=== PATIENT | male | born 1940 | race Caucasian/White ===

== ENCOUNTER 2017-05-22 15:51 | Inpatient (IN) | payer MEDICARE, OTHER ==
[2017-05-22] MEDS ORDERED: Furosemide 40 MG/4 ML VIAL IVPUSH ONE (16:11)
[2017-05-22] MEDS ORDERED: Carvedilol 12.5 MG Tab PO ONE (16:14)
[2017-05-22] MEDS ORDERED: Albuterol/Ipratropium 3.0-0.5 MG/3 ML Neb Soln NEB ONE (16:15)
--- NOTE | 2017-05-22 16:23 | EDM.PDOC ---
ED HPI GENERAL MEDICAL PROBLEM - General Chief Complaint: General Stated Complaint: SHORT OF BREATH Time Seen by Provider: 05/22/17 16:05 Source of Information: Reports: Patient, Old Records (FAX'd from [facility]) History Limitations: Reports: Other (Minimal records available.) - History of Present Illness INITIAL COMMENTS - FREE TEXT/NARRATIVE: 76 yo male 12 cigarette/day smoker with chronic Afib presents with about a 9# weight gain in the last week or so as well as SINCLAIR. When he was seen in the [facility] a couple days ago his low dose metoprolol that he had stopped on his own was replaced by low dose Coreg and he was given low dose furosemide 20 mg qd. He has not noticed an increase in urination since beginning the diuretic. He is on warfarin for the Afib, but apparently did not have an INR done when seen. He denies CP or fever. Has never had an meds for wheezing. He followed up today from his [place] visit with Dr. Gordillo in the clinic in [place] and he in turn referred him to the ER. Here now with his . Is scheduled for an ECHO on 06/02, and is seeing a chief construction inspector on 06/09 in [place]. EF 50% one year ago per ECHO Onset: Gradual Onset Date: 05/13/17 Duration: Day(s):, Getting Worse Location: Reports: Chest, Other (L ankle/foot more swollen than usual.) Severity: Moderate Improves with: Reports: Rest Worsens with: Reports: Movement (SINCLAIR) Context: Reports: Other (Smoker with hx of Afib) Associated Symptoms: Reports: Shortness of Breath (nidhi with exertion. ). 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 ) - Related Data Allergies Allergy/AdvReac Type Severity Reaction Status Date / Time No Known Allergies Allergy Verified 05/22/17 15:59 Home Meds: Home Meds Aspirin 81 mg PO DAILY 05/22/17 [History] Carvedilol [Coreg] 3.125 mg PO BID 05/22/17 [History] Dorzolamide [Trusopt 2% Ophth Soln] 1 drop EYERT BID 05/22/17 [History] Furosemide [Lasix] 20 mg PO DAILY 05/22/17 [History] Glucosamine [Glucosamine Sulfate] 200 mg PO BID 05/22/17 [History] Multivitamin/Iron/Folic Acid [Centrum Adults Tablet] 1 tab PO DAILY 05/22/17 [ History] Warfarin [Coumadin] 5 mg PO DAILY 05/22/17 [History] Past Medical History Cardiovascular History: Reports: Afib, Hypertension Respiratory History: Reports: COPD Social & Family History - Tobacco Use Smoking Status *Q: Current Every Day Smoker Years of Tobacco use: 59 Packs/Tins Daily: 1 - Caffeine Use Caffeine Use: Reports: Coffee - Recreational Drug Use Recreational Drug Use: No ED ROS GENERAL - Review of Systems Review Of Systems: See Below Constitutional: Denies: Fever, Night Sweats, Diaphoresis HEENT: Reports: No Symptoms Respiratory: Reports: Shortness of Breath (primarily with exertion.). Denies: Wheezing, Pleuritic Chest Pain, Cough Cardiovascular: Reports: Dyspnea on Exertion, Orthopnea (Worse the past few days.) Endocrine: Reports: No Symptoms GI/Abdominal: Reports: No Symptoms : Reports: No Symptoms Musculoskeletal: Reports: No Symptoms Skin: Reports: No Symptoms Neurological: Reports: No Symptoms Psychiatric: Reports: No Symptoms ED EXAM, GENERAL - Physical Exam Exam: See Below Exam Limited By: No Limitations General Appearance: Alert, WD/WN, No Apparent Distress Eye Exam: Bilateral Eye: Normal Inspection Ears: Normal External Exam, Normal Canal, Hearing Grossly Normal Ear Exam: Bilateral Ear: Auricle Normal, Canal Normal Nose: Normal Inspection, Normal Mucosa, No Blood Throat/Mouth: Normal Inspection, Normal Lips, Normal Teeth, Normal Oropharynx, Normal Voice, No Airway Compromise Head: Atraumatic Neck: Normal Inspection Respiratory/Chest: No Respiratory Distress, Lungs Clear, Decreased Breath Sounds , Wheezing (faint expiratory) Cardiovascular: Tachycardia, Irregularly Irregular GI/Abdominal: Normal Bowel Sounds, Soft, Non-Tender, No Distention Back Exam: Normal Inspection. No: CVA Tenderness (R), CVA Tenderness (L) Extremities: Pedal Edema (Trace edema to the L lower calf and foot, no calf pain , Yaw's sign not present.) Neurological: Alert, Oriented, CN II-XII Intact, Normal Cognition, No Motor/ Sensory Deficits Psychiatric: Normal Affect, Normal Mood Skin Exam: Warm, Dry, Intact, Normal Color, No Rash Lymphatic: No Adenopathy Course - Vital Signs Text/Narrative:: Discussed with a [place] chief construction inspector @ 1724h Last Recorded V/S: Last Vital Signs Temp 36.4 C 05/22/17 16:01 Pulse 125 H 05/22/17 16:01 Resp 18 05/22/17 16:01 BP 121/97 H 05/22/17 16:45 Pulse Ox 98 05/22/17 16:01 - Orders/Labs/Meds Orders: Active Orders 24 hr Category Date Time Status Cardiac Monitoring [RC] .As Directed Care 05/22/17 15:55 Active EKG Documentation Completion [RC] ASDIRECTED Care 05/22/17 15:56 Active RT Aerosol Therapy [RC] ASDIRECTED Care 05/22/17 16:15 Active Chest 1V Frontal [CR] Stat Exams 05/22/17 16:13 Taken Sodium Chloride 0.9% [Saline Flush] Med 05/22/17 16:11 Active 10 ml FLUSH ASDIRECTED PRN Saline Lock Insert [OM.PC] Routine Oth 05/22/17 16:11 Ordered EKG 12 Lead [EK] Routine Ther 05/22/17 15:55 Ordered Medication Orders Sodium Chloride (Saline Flush) 10 ml FLUSH ASDIRECTED PRN PRN Reason: Keep Vein Open Last Admin: 05/22/17 16:42 Dose: 10 ml Admin: 05/22/17 16:36 Dose: 10 ml Labs: Laboratory Tests 05/22/17 05/22/17 05/22/17 Range/Units 16:30 16:30 16:30 WBC (4.5-12.0) X10-3/uL RBC (4.30-5.75) x10(6)uL Hgb (11.5-15.5) g/dL Hct (30.0-51.3) % MCV (80-96) fL MCH (27.7-33.6) pg MCHC (32.2-35.4) g/dL RDW (11.5-15.5) % Plt Count (125-369) X10(3)uL PT 25.6 H (8.7-11.1) INR 2.48 H (0.89-1.13) D-Dimer, Quantitative 1740 H (100-400) ng/mL Sodium (135-145) mmol/L Potassium (3.5-5.3) mmol/L Chloride (100-110) mmol/L Carbon Dioxide (23-29) mmol/L BUN (8-23) mg/dL Creatinine (0.6-1.3) mg/dL Est Cr Clr Drug Dosing mL/min Estimated GFR (MDRD) (>60) BUN/Creatinine Ratio (9-20) Glucose (80-116) mg/dL Calcium (8.6-10.2) mg/dL Troponin I 0.21 H (0.02-0.06) NG/ML B-Natriuretic Peptide (0-100) pg/mL 05/22/17 05/22/17 05/22/17 Range/Units 16:30 16:30 16:30 WBC 7.5 (4.5-12.0) X10-3/uL RBC 4.93 (4.30-5.75) x10(6)uL Hgb 14.6 (11.5-15.5) g/dL Hct 43.8 (30.0-51.3) % MCV 89.0 (80-96) fL MCH 29.7 (27.7-33.6) pg MCHC 33.3 (32.2-35.4) g/dL RDW 15.0 (11.5-15.5) % Plt Count 195 (125-369) X10(3)uL PT (8.7-11.1) INR (0.89-1.13) D-Dimer, Quantitative (100-400) ng/mL Sodium 133 L (135-145) mmol/L Potassium 3.7 (3.5-5.3) mmol/L Chloride 102 (100-110) mmol/L Carbon Dioxide 21 L (23-29) mmol/L BUN 17 (8-23) mg/dL Creatinine 0.9 (0.6-1.3) mg/dL Est Cr Clr Drug Dosing 76.69 mL/min Estimated GFR (MDRD) > 60 (>60) BUN/Creatinine Ratio 18.9 (9-20) Glucose 104 (80-116) mg/dL Calcium 8.7 (8.6-10.2) mg/dL Troponin I (0.02-0.06) NG/ML B-Natriuretic Peptide 766 H (0-100) pg/mL Meds: Medications Generic Name Dose Route Start Last Admin Trade Name Freq PRN Reason Stop Dose Admin Sodium Chloride 10 ml 05/22/17 16:11 05/22/17 16:42 Saline Flush FLUSH 10 ml ASDIRECTED PRN Administration Keep Vein Open Discontinued Medications Generic Name Dose Route Start Last Admin Trade Name Freq PRN Reason Stop Dose Admin Albuterol/Ipratropium 3 ml 05/22/17 16:15 05/22/17 16:22 Duoneb 3.0-0.5 Mg/3 Ml NEB 05/22/17 16:16 3 ml ONETIME ONE Administration Carvedilol 12.5 mg 05/22/17 16:14 05/22/17 16:45 Coreg PO 05/22/17 16:15 12.5 mg ONETIME ONE Administration Furosemide 40 mg 05/22/17 16:11 05/22/17 16:37 Lasix IVPUSH 05/22/17 16:12 40 mg NOW ONE Administration - Radiology Interpretation Free Text/Narrative:: CXR-interstitial edema consistent with CHF Departure - Departure Time of Disposition: 17:30 Disposition: Admitted As Inpatient 68 Condition: Fair Clinical Impression: Atrial fibrillation with RVR, Elevated troponin Pulmonary edema Qualifiers: Chronicity: acute Qualified Code(s): J81.0 - Acute pulmonary edema - Discharge Information Referrals: Tal Griffiths MD [Primary Care Provider] - Forms: ED Department Discharge - My Orders Last 24 Hours: My Active Orders 05/22/17 15:55 Cardiac Monitoring [RC] .As Directed EKG 12 Lead [EK] Routine 05/22/17 15:56 EKG Documentation Completion [RC] ASDIRECTED 05/22/17 16:11 Sodium Chloride 0.9% [Saline Flush] 10 ml FLUSH ASDIRECTED PRN Saline Lock Insert [OM.PC] Routine 05/22/17 16:13 Chest 1V Frontal [CR] Stat 05/22/17 16:15 RT Aerosol Therapy [RC] ASDIRECTED - Assessment/Plan Last 24 Hours: My Active Orders 05/22/17 15:55 Cardiac Monitoring [RC] .As Directed EKG 12 Lead [EK] Routine 05/22/17 15:56 EKG Documentation Completion [RC] ASDIRECTED 05/22/17 16:11 Sodium Chloride 0.9% [Saline Flush] 10 ml FLUSH ASDIRECTED PRN Saline Lock Insert [OM.PC] Routine 05/22/17 16:13 Chest 1V Frontal [CR] Stat 05/22/17 16:15 RT Aerosol Therapy [RC] ASDIRECTED
[2017-05-22] MEDS: Sodium Chloride 0.9% 10 ML Syringe FLUSH PRN ×2 (16:36→16:42)
[2017-05-22] MEDS ORDERED: Albuterol/Ipratropium 3.0-0.5 MG/3 ML Neb Soln NEB SCH (17:30)
[2017-05-22] MEDS ORDERED: Acetaminophen 325 MG Tab PO PRN (17:30)
[2017-05-22] MEDS ORDERED: Docusate Sodium 100 MG Cap PO PRN (17:30)
[2017-05-22] MEDS ORDERED: Warfarin 5 MG Tab PO SCH (17:45)
[2017-05-22] MEDS ORDERED: Dorzolamide 2% Ophth Soln 10 ML Bottle EYERT SCH (21:00)
[2017-05-22] MEDS: Albuterol/Ipratropium 3.0-0.5 MG/3 ML Neb Soln NEB SCH (21:50)
[2017-05-23] MEDS: Albuterol/Ipratropium 3.0-0.5 MG/3 ML Neb Soln NEB SCH ×2 (03:39→09:46)
[2017-05-23] MEDS ORDERED: Dorzolamide 2% Ophth Soln 10 ML Bottle EYERT SCH (07:25)
[2017-05-23] MEDS ORDERED: Carvedilol 12.5 MG Tab PO SCH (09:00)
[2017-05-23] MEDS ORDERED: Aspirin 81 MG Tab.Chew PO SCH (09:00)
[2017-05-23] MEDS: Furosemide 40 MG/4 ML VIAL IVPUSH SCH ×2 (09:45→10:04)
[2017-05-23] MEDS: Sodium Chloride 0.9% 10 ML Syringe FLUSH PRN (09:47)
[2017-05-23] MEDS ORDERED: Furosemide 40 MG Tab PO SCH (10:15)
--- NOTE | 2017-05-23 12:07 | PN ---
DATE SEEN: 05/23/2017 SUBJECTIVE: Tal Hudson is a 76-year-old, male, admitted with atrial fibrillation related cardiac stress. Diuresed 4 pounds since admission. Have been at 9 pounds in the last week. Laboratory studies, repeat troponin. Feeling much better. OBJECTIVE: VITAL SIGNS: Stable, 36.5 degrees Celsius, pulse 96 and regular, blood pressure 122/82, mean blood pressure 95, respirations 20, 97% on room air. GENERAL: Appears more comfortable. NECK: Benign. Thyroid small. Carotid bruit present on the right, none on the left. Surgical scar well healed. CHEST: Decreased breath sounds in both bases. Increased AP diameter. Prolonged expiratory phase. HEART: Distant heart sounds. Irregularly irregular at 92. ABDOMEN: Benign. EXTREMITIES: No edema. ASSESSMENT: Acute exacerbation of congestive heart failure, cardiac stress, cardiac overload, rate not controlled atrial fibrillation. PLAN: We will recheck a 3rd troponin, up ambulatory, medications on board, appeared to be comfortable, including carvedilol at 12.5 b.i.d. Intervention and care. Close observation. Proceed accordingly. Re-evaluate at noon. /[id number] MARRY/PREM
[2017-05-23 12:23] VITALS: BP 112/64
[2017-05-24] MEDS ORDERED: Furosemide 40 MG Tab PO SCH (09:00)
--- NOTE | 2017-05-25 09:13 | PN ---
DATE SEEN: 05/22/2017 SUBJECTIVE: Tal Hudson is a 76-year-old male from [place], [place], who was admitted to [facility] through the emergency room. He presents with increasing history, probably since mid-summer, but progressively worse over the last 2 weeks with shortness of breath, intolerance to activity, and nocturnal shortness of breath. He had been seen at the [facility] a few days ago, he on his own had stopped his metoprolol, was placed on low dose with increasing doses of carvedilol and low dose 20 mg of furosemide. He is on chronic anticoagulant therapy with warfarin for atrial fibrillation. He is being followed by Dr. Addison, Cardiology, upcoming trip planned and Dr. Tal Griffiths, primary physician. He was found to have a rapid heart rate in the 120s, mild CHF, slightly elevated troponin. Dr. Giles, ER provider of record had spoken with Cardiology in [place], felt this was a stress-related reaction rather than an acute infarct, stable EKG, and admission to the hospital was felt to be appropriate. MEDICATIONS: Present daily medications include, 1. Baby aspirin 81 mg. 2. Carvedilol 12.5 mg b.i.d. 3. Furosemide 20 mg 1 p.o. daily. 4. Trusopt eyedrops 1 drop each eye b.i.d. 5. Glucosamine 500 mg b.i.d. 6. A good multivitamin 1 daily. 7. Warfarin 5, Thursday, Thursday, Thursday; 7.5 other 4 days. ALLERGIES: No medication, environmental, or latex allergies. PAST MEDICAL HISTORY: Significant for multiple surgeries including a left carotid endarterectomy, right inguinal herniorrhaphy, aortic aneurysm stent, and vein surgery along with acute appendectomy. He has had a previous wrist fracture at age 6, site unknown. Chronic illnesses include COPD, suspect CHF, stable carotid disease. No other operative procedures, hospitalizations, unusual childhood diseases, major injuries, or fractures. SOCIAL HISTORY: Resides in [place], [place]. 70, good health. [place]. [facility] of [facility] of 72 residence. Continues to smoke 10 to 12 cigarettes per day, nil alcohol consumption, no illicit drug use. Four children, 3 daughters, 1 son; 5 grand kids. FAMILY HISTORY: Dad succumbed to lung cancer in his 60s, mom lung cancer in her 70s. One brother and two sisters in good health. No family history of early heart disease, diabetes mellitus, or inheritable cancers. REVIEW OF SYSTEMS: CONSTITUTIONAL: Little weak, little tired, little fatigable. EYES: Sees well. EARS: Difficult hearing, hearing aids. OROPHARYNX: Poor dentition. RESPIRATORY: See HPI. CARDIOVASCULAR: Please see HPI. GI: Regular predictable stools, no blood in stools. : Good voiding pattern. SKIN: No skin rash, eruptions, or moles. ENDOCRINE: No excessive thirst or urination. ALLERGIES: No chronic cough. PHYSICAL EXAMINATION: VITAL SIGNS: On admission, 37.2; pulse 102, irregularly irregular; blood pressure 131/93, mean blood pressure 105; respirations 18; and 92% on 1 L. GENERAL: Young man, cooperative, conversant, gives a good history. Mild distress. HEENT: Funduscopic benign. Conjunctivae clear. Bright tympanic membranes. Clear nasal discharge. Mouth and oropharynx clear. Missing teeth noted. Fair condition. NECK: Benign. Thyroid small, no adenopathy. Left carotid endarterectomy scar is well healed. CHEST: Clear in all lung lopez. No adventitious sounds. HEART: Irregularly irregular at 102. ABDOMEN: Benign. Right lower abdominal herniorrhaphy scar is present. AND RECTAL: Deferred. EXTREMITIES: Well perfused. NEUROLOGIC: Reflex symmetric. Sensation intact. LABORATORY STUDIES: CBC revealed white count 7500, hemoglobin 14.6. INR 2.48, therapeutic. Electrolytes: Sodium 133, carbon dioxide 21. Troponin 0.21. BNP 766. Urinalysis: Clear. CHEST X-RAY: Mild congestion. ASSESSMENT: Acute exacerbation of heart failure secondary to complications of persistent tachycardia. PLAN: Admission to the hospital is indicated. Close observation. We will check troponin accordingly, watch for rhythm related issues, supplemental O2, adjustments of medications accordingly. /[id number] /PREM
--- NOTE | 2017-05-25 09:29 | DISCH ---
DISCHARGE DATE: 05/23/2017 SUBJECTIVE: Tal Hudson is a 76-year-old male, admitted with troublesome shortness of breath, tachycardia related to uncontrolled atrial fibrillation, on Coumadin therapy. He had stopped his metoprolol due to concerns of it aggravating his knee pain. He was seen in the [facility], placed on 20 mg of furosemide and was switched to 3.125 mg b.i.d. of carvedilol. On admission, he had a normal EKG resting tachycardia with atrial fibrillation, and two mildly elevated troponins 0.22 and 0.21 respectively. Heart rate was controlled. Carvedilol was increased, the patient reluctant to restart the metoprolol, increased carvedilol 12.5 mg b.i.d., tolerated. At rest, heart rate was down to 90s, up in the 110s with activity. Shortness of breath resolved and was otherwise comfortable. Echocardiogram was not available for intervention. Discharged home in good condition. There were no other arrhythmias or other complicating issues. Diagnostic studies were otherwise satisfactory, and he was in good spirits. He has an upcoming echocardiogram planned within the next week's time and a Cardiology visit in the next two week's time. He has an upcoming general appointment with Dr. Griffiths this upcoming Thursday. No outstanding laboratory studies at the time of discharge. DIAGNOSIS: Acute cardiac strain secondary to a persistent atrial fibrillation related tachycardia. ADDENDUM: ER doctor had spoken to the Cardiology staff at [facility] who recommend continued care here at [facility] as we provided. /[id number] MARRY/PREM CC: MD Tanisha Anderson NP
--- NOTE | 2017-05-25 13:54 | CR ---
INDICATION: Short of breath. CHEST: An upright portable view of the chest AP in projection was obtained 01/2017 and compared with 02/12/2011 PA view. Poor inspiration is suggested. The heart appears enlarged or at least at the upper limits of normal in size. The aorta is tortuous and calcified in the arch area. Overlying EKG leads are noted. Upper lung field pulmonary vasculature appears slightly prominent, raising question of a mild degree of CHF. Interstitial markings are also somewhat prominent and are increased compared with the previous study, suggesting interstitial lung edema. Diaphragm leaves are slightly flattened, raising question of progressive COPD. A definite area of pneumonia was not identified. IMPRESSION: 1. ASHD, probable cardiomegaly of mild degree, CHF, and interstitial lung edema. Other cause of interstitial changes, such as pneumonia, cannot be excluded. 2. Probable COPD. 3. Suggest PA and lateral views of the chest with full inspiration when clinically possible for further evaluation. MTDD
== END 2017-05-23 15:08 | disposition home or self-care (01) | DRG 293 ==
LOC: FB.ED 15:51 → FB.ICU 17:30
PROVIDERS: ADMIT Emergency Medicine; ATTEND Family Medicine
DX: I11.0 Hypertensive heart disease with heart failure (principal); I50.9 Heart failure, unspecified; R00.0 Tachycardia, unspecified; R74.8 Abnormal levels of other serum enzymes; F17.210 Nicotine dependence, cigarettes, uncomplicated; I48.2 Chronic atrial fibrillation; R06.02 Shortness of breath; R06.00 Dyspnea, unspecified; Z79.01 Long term (current) use of anticoagulants; Z79.82 Long term (current) use of aspirin
CPT/HCPCS: 36415; 71010; 80048; 83735; 83880; 84484; 85027; 85379; 85610; 93005; 94640; 96374; 99285; A9270; J1940; J7050 ×2; J7620; 81003

== ENCOUNTER 2020-03-28 02:06 | Inpatient (IN) | payer MEDICARE, OTHER ==
[2020-03-28] MEDS ORDERED: Furosemide 20 MG/2 ML VIAL IVPUSH ONE (02:32)
[2020-03-28] MEDS ORDERED: Metolazone 2.5 MG Tab PO ONE (02:32)
[2020-03-28] MEDS ORDERED: Morphine 2 MG/ML SYRINGE IVPUSH ONE (02:33)
[2020-03-28] MEDS: Sodium Chloride 0.9% 10 ML Syringe FLUSH PRN ×3 (02:47→14:55)
--- NOTE | 2020-03-28 03:17 | EDM.PDOC ---
ED HPI GENERAL MEDICAL PROBLEM - General Chief Complaint: Respiratory Problem Stated Complaint: sob Time Seen by Provider: 03/28/20 02:40 Source of Information: Reports: Patient History Limitations: Reports: No Limitations - History of Present Illness INITIAL COMMENTS - FREE TEXT/NARRATIVE: Patient presented to the ED because of increasing dyspnea for the past month. He normally can walk more than 100 ft but now he can only walk 50 ft and he gets dyspneic. He also also have a weight gain of 15 lbs for the past week as well as edema. He has non productive cough,denies having any fever or chills. There is no chest pain, N/V diaphoresis. He was seen at the [facility] yesterday because of dyspnea which bothers him from his sleep, labs, EKG were done-see result and was discharged to home. ED doc apparently consulted is supervisor facepiece line and added aldactone 25 mg daily to his medication. His torsemide was also increased 2 weeks ago by his supervisor facepiece line from 20 mg twice daily to 40 mg twice daily. Echo done 12/04 did show EF of 25% per record from [facility]. - Related Data Allergies Allergy/AdvReac Type Severity Reaction Status Date / Time No Known Allergies Allergy Verified 05/22/17 15:59 Home Meds: Home Meds Warfarin [Coumadin] 5 mg PO MOWEFR 05/22/17 [History] Warfarin [Coumadin] 7.5 mg PO SUTUTHSA 05/22/17 [History] Carboxymethylcellulose Sodium [Restore Tears] 2 drop EYEBOTH ASDIRECTED PRN 03/28/20 [History] Carvedilol [Coreg] 1.5 tab PO BID 03/28/20 [History] Spironolactone [Aldactone] 1 tab PO BID 03/28/20 [History] Torsemide [Demadex] 2 tab PO DAILY 03/28/20 [History] hydrALAZINE [Apresoline] 1 tab PO TID 03/28/20 [History] Past Medical History HEENT History: Reports: Hard of Hearing Other HEENT History: 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, also has glaucoma right eye Cardiovascular History: Reports: Afib, High Cholesterol, Hypertension Other Cardiovascular History: has had an angiogram, US in the past Respiratory History: Reports: COPD Musculoskeletal History: Reports: Osteoarthritis Other Musculoskeletal History: both knees - Past Surgical History HEENT Surgical History: Reports: None Other Cardiovascular Surgeries/Procedures: left carotid endarterectomy, AAA stented Respiratory Surgical History: Reports: None GI Surgical History: Reports: Hernia, Inguinal Other GI Surgeries/Procedures: left inguinal Social & Family History - Tobacco Use Smoking Status *Q: Current Every Day Smoker Years of Tobacco use: 50 Packs/Tins Daily: 0.3 - Caffeine Use Caffeine Use: Reports: Coffee, Soda Other Caffeine Use: 4 cups of coffee per day - Alcohol Use Days Per Week of Alcohol Use: 7 Number of Drinks Per Day: 7 Total Drinks Per Week: 49 - Recreational Drug Use Recreational Drug Use: No ED ROS GENERAL - Review of Systems Review Of Systems: See Below Constitutional: Reports: Fatigue. Denies: Fever, Chills HEENT: Reports: No Symptoms, Contact Lenses Respiratory: Reports: Shortness of Breath, Cough. Denies: Sputum Cardiovascular: Reports: No Symptoms Endocrine: Reports: No Symptoms GI/Abdominal: Reports: No Symptoms : Reports: No Symptoms Musculoskeletal: Reports: No Symptoms Skin: Reports: Wound Neurological: Reports: No Symptoms Psychiatric: Reports: No Symptoms Hematologic/Lymphatic: Reports: No Symptoms ED EXAM, GENERAL - Physical Exam Exam: See Below Exam Limited By: No Limitations General Appearance: Alert, No Apparent Distress Eye Exam: Bilateral Eye: PERRL Ears: Normal External Exam, Normal Canal Nose: Normal Inspection, Normal Mucosa, No Blood Throat/Mouth: Normal Inspection, Normal Lips, Normal Teeth, Normal Gums Head: Atraumatic, Normocephalic Neck: Normal Inspection, Supple, Non-Tender, Full Range of Motion Respiratory/Chest: No Respiratory Distress, Lungs Clear, Normal Breath Sounds Cardiovascular: Normal Peripheral Pulses, Regular Rate, Rhythm, No Edema, No Gallop GI/Abdominal: Normal Bowel Sounds, Soft, Non-Tender, No Organomegaly Back Exam: Normal Inspection, Full Range of Motion Extremities: Other (BLE edema) Neurological: Alert, Oriented, CN II-XII Intact Course - Vital Signs Text/Narrative:: Labs/EKG/CXR was discussed with patient and verbalized full understanding Lasix 40 mg IV zaroxolyn 2.5 mg po x1 moprhine 2 mg IV x1 Last Recorded V/S: Last Vital Signs Temp 36.4 C 03/28/20 02:35 Pulse 88 03/28/20 02:35 Resp 16 03/28/20 02:35 BP 106/73 03/28/20 02:35 Pulse Ox 100 03/28/20 03:39 - Orders/Labs/Meds Orders: Active Orders 24 hr Category Date Time Status EKG Documentation Completion [RC] ASDIRECTED Care 03/28/20 02:32 Active Chest 2V [CR] Stat Exams 03/28/20 02:22 Taken Shoulder Comp Rt [CR] Stat Exams 03/28/20 02:35 Taken INR,PT,PROTHROMBIN TIME [COAG] Stat Lab 03/28/20 02:50 Received Sodium Chloride 0.9% [Saline Flush] Med 03/28/20 02:31 Active 10 ml FLUSH ASDIRECTED PRN Saline Lock Insert [OM.PC] Routine Oth 03/28/20 02:31 Ordered EKG 12 Lead [EK] Routine Ther 03/28/20 02:31 Ordered Medication Orders Sodium Chloride (Saline Flush) 10 ml FLUSH ASDIRECTED PRN PRN Reason: Keep Vein Open Last Admin: 03/28/20 02:47 Dose: 10 ml Documented by: LIZETT Labs: Laboratory Tests 03/28/20 03/28/20 03/28/20 Range/Units 02:50 02:50 02:50 WBC 7.9 (4.5-12.0) X10-3/uL RBC 4.64 (4.30-5.75) x10(6)uL Hgb 14.1 (13.5-17.8) g/dL Hct 44.1 (30.0-51.3) % MCV 95.1 (80-96) fL MCH 30.4 (27.7-33.6) pg MCHC 31.9 L (32.2-35.4) g/dL RDW 16.6 H (11.5-15.5) % Plt Count 162 (125-369) X10(3)uL MPV 8.9 (7.4-10.4) fL Neut % (Auto) 71.7 (46-82) % Lymph % (Auto) 15.7 (13-37) % [place] % (Auto) 11.1 (4-12) % Eos % (Auto) 1 (1.0-5.0) % Baso % (Auto) 1 (0-2) % Neut # (Auto) 5.7 (1.6-8.3) # Lymph # (Auto) 1.2 (0.6-5.0) # [place] # (Auto) 0.9 (0.0-1.3) # Eos # (Auto) 0.1 (0.0-0.8) # Baso # (Auto) 0.0 (0.0-0.2) # Sodium 134 L (135-145) mmol/L Potassium 3.7 (3.5-5.3) mmol/L Chloride 98 L (100-110) mmol/L Carbon Dioxide 27 (21-32) mmol/L BUN 35 H (7-18) mg/dL Creatinine 2.1 H* (0.70-1.30) mg/dL Est Cr Clr Drug Dosing 31.38 mL/min Estimated GFR (MDRD) 31 L (>60) BUN/Creatinine Ratio 16.7 (9-20) Glucose 104 (80-116) mg/dL Calcium 8.3 L (8.6-10.2) mg/dL Total Bilirubin 1.3 (0.1-1.3) mg/dL AST 26 H (5-25) IU/L ALT 20 (12-36) U/L Alkaline Phosphatase 152 H (56-112) IU/L Troponin I 25.4 (4.0-60.3) pg/mL NT-Pro-B Natriuret Pep 45728 H* (<=450) pg/mL Total Protein 6.9 (6.0-8.0) g/dL Albumin 3.1 L (3.2-4.6) g/dL Globulin 3.8 g/dL Albumin/Globulin Ratio 0.8 Meds: Medications Generic Name Dose Route Start Last Admin Trade Name Freq PRN Reason Stop Dose Admin Sodium Chloride 10 ml 03/28/20 02:31 03/28/20 02:47 Saline Flush FLUSH 10 ml ASDIRECTED PRN Administration Keep Vein Open Discontinued Medications Generic Name Dose Route Start Last Admin Trade Name Freq PRN Reason Stop Dose Admin Furosemide 40 mg 03/28/20 02:32 03/28/20 02:46 Lasix IVPUSH 03/28/20 02:33 40 mg ONETIME ONE Administration Metolazone 2.5 mg 03/28/20 02:32 03/28/20 02:47 Zaroxolyn PO 03/28/20 02:33 2.5 mg ONETIME ONE Administration Morphine Sulfate 2 mg 03/28/20 02:33 03/28/20 02:46 Morphine IVPUSH 03/28/20 02:34 2 mg ONETIME ONE Administration Departure - Departure Time of Disposition: 03:30 Disposition: Admitted As Inpatient 68 Condition: Good Clinical Impression: CHF (congestive heart failure), COPD (chronic obstructive pulmonary disease), Atrial fibrillation, Atrial flutter - Discharge Information Referrals: Tal Griffiths MD [Primary Care Provider] - Forms: ED Department Discharge Sepsis Event Note (ED) - Evaluation Sepsis Screening Result: No Definite Risk - Focused Exam Vital Signs: Vital Signs Temp Pulse Resp BP Pulse Ox Pulse Ox 03/28/20 03:39 100 03/28/20 02:35 36.4 C 88 16 106/73 100 - My Orders Last 24 Hours: My Active Orders 03/28/20 02:22 Chest 2V [CR] Stat 03/28/20 02:31 Sodium Chloride 0.9% [Saline Flush] 10 ml FLUSH ASDIRECTED PRN Saline Lock Insert [OM.PC] Routine EKG 12 Lead [EK] Routine 03/28/20 02:32 EKG Documentation Completion [RC] ASDIRECTED 03/28/20 02:35 Shoulder Comp Rt [CR] Stat 03/28/20 02:50 INR,PT,PROTHROMBIN TIME [COAG] Stat - Assessment/Plan Last 24 Hours: My Active Orders 03/28/20 02:22 Chest 2V [CR] Stat 03/28/20 02:31 Sodium Chloride 0.9% [Saline Flush] 10 ml FLUSH ASDIRECTED PRN Saline Lock Insert [OM.PC] Routine EKG 12 Lead [EK] Routine 03/28/20 02:32 EKG Documentation Completion [RC] ASDIRECTED 03/28/20 02:35 Shoulder Comp Rt [CR] Stat 03/28/20 02:50 INR,PT,PROTHROMBIN TIME [COAG] Stat
[2020-03-28] MEDS ORDERED: Zolpidem 5 MG Tab PO PRN (03:52)
--- NOTE | 2020-03-28 08:51 | PCM.HP.2 ---
H&P History of Present Illness - General Date of Service: 03/28/20 Admit Problem/Dx: Admission Diagnosis/Problem Admission Diagnosis/Problem CHF, Congestive heart failure Source of Information: Patient, EMS Notes Reviewed History Limitations: Reports: No Limitations - History of Present Illness Initial Comments - Free Text/Narative: Tal was admitted early this morning for CHF exacerbation, has been having more shortness of breath over the past month, with 15 lbs weight gain over the past week. Denies fevers, chills, runny nose, ear ache, sore throat, swollen glands, nausea, vomiting, diarrhea, change in urination. He had a little right side chest pain but didn't last long and not present now. EKG & Troponin was negative on 03/26 when seen at [facility], BNP on 03/26 was 3572, Cr 1.52, CRP 39.4. Was started on Aldactone 25 mg daily and discharged home. [place] [address]59, INR 2.51, alkaline phosphatase elevated at 152. Last echo in 12/04, EF was 20%, [facility] has scheduled echo for this fall. Had fall at home hurt right shoulder, x-ray done in ER, no acute fracture seen. Also has a drug-induced rash on abdomen per dermatology and has yet to find the medication that is causing it. He has scarring from it but still getting new ones, states that if he picks top off when they start so don't get as big. No heart valve replacement, no valvular disease as far as he knows, they have not tried switching him off Coumadin to see if that maybe cause as that can produce drug rash. He also has deep abrasion to left elbow and right knee from fall last week, has been putting antibiotic ointment on it and leaving open to air, when he covers it states it looks worse and doesn't heal as quickly. He states he was tried on an inhaler for COPD, doesn't know the name but not taking now. Current every day smoker. History of left endarterectomy. - Related Data Allergies/Adverse Reactions: Allergies Allergy/AdvReac Type Severity Reaction Status Date / Time metoprolol Allergy Swelling Verified 03/28/20 05:17 Home Medications: Home Meds Carboxymethylcellulose Sodium [Restore Tears] 2 drop EYEBOTH DAILY 03/28/20 [History] Carvedilol [Coreg] 1.5 tab PO BID 03/28/20 [History] Potassium Chloride [K-Tab ER] 20 meq PO DAILY 03/28/20 [History] Spironolactone [Aldactone] 1 tab PO BID 03/28/20 [History] Torsemide [Demadex] 2 tab PO DAILY 03/28/20 [History] Warfarin [Coumadin] 2.5 mg PO MOFR 03/28/20 [History] Warfarin [Coumadin] 5 mg PO SUTUWETHSA 03/28/20 [History] hydrALAZINE [Apresoline] 1 tab PO TID 03/28/20 [History] Past Medical History HEENT History: Reports: Hard of Hearing Other HEENT History: 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, also has glaucoma right eye Cardiovascular History: Reports: Afib, High Cholesterol, Hypertension Other Cardiovascular History: has had an angiogram, US in the past Respiratory History: Reports: COPD Musculoskeletal History: Reports: Osteoarthritis Other Musculoskeletal History: both knees - Infectious Disease History Infectious Disease History: Reports: Chicken Pox, Shingles - Past Surgical History HEENT Surgical History: Reports: None Other Cardiovascular Surgeries/Procedures: left carotid endarterectomy, AAA stented Respiratory Surgical History: Reports: None GI Surgical History: Reports: Hernia, Inguinal Other GI Surgeries/Procedures: left inguinal Social & Family History - Family History Family Medical History: Noncontributory - Tobacco Use Smoking Status *Q: Current Every Day Smoker Years of Tobacco use: 50 Packs/Tins Daily: 0.3 - Caffeine Use Caffeine Use: Reports: Coffee, Soda Other Caffeine Use: 4 cups of coffee per day - Alcohol Use Days Per Week of Alcohol Use: 7 Number of Drinks Per Day: 1 Total Drinks Per Week: 7 - Recreational Drug Use Recreational Drug Use: No H&P Review of Systems - Review of Systems: Review Of Systems: Comprehensive ROS is negative, except as noted in HPI. Exam - Exam Exam: See Below - Vital Signs Vital Signs: Last Vital Signs Temp 97.4 F 03/28/20 07:30 Pulse 88 03/28/20 07:30 Resp 20 03/28/20 07:30 BP 129/83 03/28/20 07:30 Pulse Ox 100 03/28/20 07:30 Weight: 209 lb 3.2 oz - Exam Quality Assessment: Supplemental Oxygen General: Alert, Oriented, Cooperative. No: Mild Distress HEENT: PERRLA, Conjunctiva Clear, EOMI, Hearing Intact, Mucosa Moist & [place], Nares Patent, Normal Nasal Septum, Posterior Pharynx Clear, TMs Clear (minimal c erumen present bilateral) Neck: Supple, Trachea Midline. No: Lymphadenopathy (has lump submandibular, states that is area where he had surgery at, NT. ) Lungs: Clear to Auscultation (BUE), Normal Respiratory Effort, Decreased Breath Sounds, Crackles (bibasilar). No: Wheezing Cardiovascular: Regular Rate, Irregular Rhythm. No: Systolic Murmur GI/Abdominal Exam: Normal Bowel Sounds, Soft, Non-Tender, No Distention (Male) Exam: Deferred Rectal (Males) Exam: Deferred Back Exam: Normal Inspection Extremities: Pedal Edema (2+ bilateral extends to knees.) Peripheral Pulses: 2+: Radial (L), Radial (R) Skin: Rash (post-inflammatory hyperpigmentation on abdomen, also eschars with surrounding erythema scattered on abdomen.), Wound ( 5 cm jagged abrasion, some granulation tissue present centrally, eschar on proximal/distal portions on left elbow, 1 cm abrasion on right knee, no eschar, no erythema.) Neurological: Cranial Nerves Intact Psychiatric: Normal Affect, Normal Mood - Patient Data Lab Results Last 24 hrs: Laboratory Results - last 24 hr 03/28/20 03/28/20 03/28/20 Range/Units 02:50 02:50 02:50 WBC 7.9 (4.5-12.0) X10-3/uL RBC 4.64 (4.30-5.75) x10(6)uL Hgb 14.1 (13.5-17.8) g/dL Hct 44.1 (30.0-51.3) % MCV 95.1 (80-96) fL MCH 30.4 (27.7-33.6) pg MCHC 31.9 L (32.2-35.4) g/dL RDW 16.6 H (11.5-15.5) % Plt Count 162 (125-369) X10(3)uL MPV 8.9 (7.4-10.4) fL Neut % (Auto) 71.7 (46-82) % Lymph % (Auto) 15.7 (13-37) % [place] % (Auto) 11.1 (4-12) % Eos % (Auto) 1 (1.0-5.0) % Baso % (Auto) 1 (0-2) % Neut # (Auto) 5.7 (1.6-8.3) # Lymph # (Auto) 1.2 (0.6-5.0) # [place] # (Auto) 0.9 (0.0-1.3) # Eos # (Auto) 0.1 (0.0-0.8) # Baso # (Auto) 0.0 (0.0-0.2) # PT 25.5 H (9.0-11.1) sec INR 2.51 H (1.00-1.24) Sodium 134 L (135-145) mmol/L Potassium 3.7 (3.5-5.3) mmol/L Chloride 98 L (100-110) mmol/L Carbon Dioxide 27 (21-32) mmol/L BUN 35 H (7-18) mg/dL Creatinine 2.1 H* (0.70-1.30) mg/dL Est Cr Clr Drug Dosing 31.38 mL/min Estimated GFR (MDRD) 31 L (>60) BUN/Creatinine Ratio 16.7 (9-20) Glucose 104 (80-116) mg/dL Calcium 8.3 L (8.6-10.2) mg/dL Total Bilirubin 1.3 (0.1-1.3) mg/dL AST 26 H (5-25) IU/L ALT 20 (12-36) U/L Alkaline Phosphatase 152 H (56-112) IU/L Troponin I (4.0-60.3) pg/mL NT-Pro-B Natriuret Pep (<=450) pg/mL Total Protein 6.9 (6.0-8.0) g/dL Albumin 3.1 L (3.2-4.6) g/dL Globulin 3.8 g/dL Albumin/Globulin Ratio 0.8 03/28/20 Range/Units 02:50 WBC (4.5-12.0) X10-3/uL RBC (4.30-5.75) x10(6)uL Hgb (13.5-17.8) g/dL Hct (30.0-51.3) % MCV (80-96) fL MCH (27.7-33.6) pg MCHC (32.2-35.4) g/dL RDW (11.5-15.5) % Plt Count (125-369) X10(3)uL MPV (7.4-10.4) fL Neut % (Auto) (46-82) % Lymph % (Auto) (13-37) % [place] % (Auto) (4-12) % Eos % (Auto) (1.0-5.0) % Baso % (Auto) (0-2) % Neut # (Auto) (1.6-8.3) # Lymph # (Auto) (0.6-5.0) # [place] # (Auto) (0.0-1.3) # Eos # (Auto) (0.0-0.8) # Baso # (Auto) (0.0-0.2) # PT (9.0-11.1) sec INR (1.00-1.24) Sodium (135-145) mmol/L Potassium (3.5-5.3) mmol/L Chloride (100-110) mmol/L Carbon Dioxide (21-32) mmol/L BUN (7-18) mg/dL Creatinine (0.70-1.30) mg/dL Est Cr Clr Drug Dosing mL/min Estimated GFR (MDRD) (>60) BUN/Creatinine Ratio (9-20) Glucose (80-116) mg/dL Calcium (8.6-10.2) mg/dL Total Bilirubin (0.1-1.3) mg/dL AST (5-25) IU/L ALT (12-36) U/L Alkaline Phosphatase (56-112) IU/L Troponin I 25.4 (4.0-60.3) pg/mL NT-Pro-B Natriuret Pep 26587 H* (<=450) pg/mL Total Protein (6.0-8.0) g/dL Albumin (3.2-4.6) g/dL Globulin g/dL Albumin/Globulin Ratio Result Diagrams: 03/28/20 02:50 03/28/20 02:50 Sepsis Event Note - Evaluation Sepsis Screening Result: No Definite Risk - Focused Exam Vital Signs: Vital Signs Temp Pulse Resp BP Pulse Ox Pulse Ox 03/28/20 07:30 97.4 F 88 20 129/83 100 03/28/20 04:57 96 03/28/20 04:35 100 03/28/20 04:03 97.5 F 88 18 124/86 100 03/28/20 04:01 88 18 124/86 100 03/28/20 03:52 100 03/28/20 03:39 88 16 122/81 100 100 03/28/20 02:35 97.5 F 88 16 106/73 100 *Q Meaningful Use (ADM) - VTE Risk Assess *Q Each Risk Factor Represents 1 Point: Congestive heart failure (CHF) Total Score 1 Point Risk Factors: 1 Each Risk Factor Represents 2 Points: None Total Score 2 Point Risk Factors: 0 Each Risk Factor Represents 3 Points: Age 75 Years or Greater Total Score 3 Point Risk Factors: 3 Each Risk Factor Represents 5 Points: None Total Score 5 Point Risk Factors: 0 Venous Thromboembolism Risk Factor Score *Q: 4 - Problem List (1) Atrial fibrillation SNOMED Code(s): 97775681 ICD Code: I48.91 - UNSPECIFIED ATRIAL FIBRILLATION Status: Acute Current Visit: Yes (2) Atrial flutter SNOMED Code(s): 6398054 ICD Code: I48.92 - UNSPECIFIED ATRIAL FLUTTER Status: Acute Current Visit: Yes (3) CHF (congestive heart failure) SNOMED Code(s): 61158326 ICD Code: I50.9 - HEART FAILURE, UNSPECIFIED Status: Acute Current Visit: Yes (4) COPD (chronic obstructive pulmonary disease) SNOMED Code(s): 78184192 ICD Code: J44.9 - CHRONIC OBSTRUCTIVE PULMONARY DISEASE, UNSPECIFIED Statu s: Acute Current Visit: Yes (5) History of left-sided carotid endarterectomy SNOMED Code(s): 740916009 ICD Code: Z98.890 - OTHER SPECIFIED POSTPROCEDURAL STATES Status: Chronic Current Visit: Yes Problem List Initiated/Reviewed/Updated: Yes Orders Last 24hrs: Active Orders 24 hr Category Date Time Status Patient Status [ADT] Routine ADT 03/28/20 03:52 Active Antiembolic Devices [RC] .Routine Care 03/28/20 07:42 Active Height and Weight [RC] 06 Care 03/28/20 03:52 Active Intake and Output [RC] 06,14,22 Care 03/28/20 03:53 Active Oxygen Therapy [RC] PRN Care 03/28/20 03:52 Active Pulse Oximetry [RC] Q4HR Care 03/28/20 03:54 Active Telemetry Monitoring [Cardiac Monitoring] [RC] 08,16,00 Care 03/28/20 04:35 Active Up With Assistance [RC] ASDIRECTED Care 03/28/20 03:52 Active VTE/DVT Education [RC] Per Unit Routine Care 03/28/20 03:52 Active Vital Signs [RC] 00,04,08,12,16,20 Care 03/28/20 03:52 Active OT Evaluation and Treatment [CONS] Routine Cons 03/28/20 07:53 Active PT Evaluation and Treatment [CONS] Routine Cons 03/28/20 07:53 Active Heart Healthy Diet [DIET] Diet 03/28/20 Breakfast Active Chest 2V [CR] Stat Exams 03/28/20 02:22 Taken Shoulder Comp Rt [CR] Stat Exams 03/28/20 02:35 Taken Carboxymethylcellulose Sodium [Refresh Tears 0.5%] Med 03/28/20 03:55 Active 0 ml EYEBOTH ASDIRECTED PRN Docusate Sodium/Sennosides [Senna Plus] Med 03/28/20 03:52 Active 1 tab PO BID PRN Furosemide [Lasix] Med 03/28/20 08:00 Active 40 mg IVPUSH BIDDIURETIC Sodium Chloride 0.9% [Saline Flush] Med 03/28/20 02:31 Active 10 ml FLUSH ASDIRECTED PRN Spironolactone [Aldactone] Med 03/28/20 09:00 Active 25 mg PO BID Warfarin [Coumadin] Med 03/28/20 16:00 Active 5 mg PO MoWeFr@1600 Warfarin [Coumadin] Med 03/29/20 16:00 Active 7.5 mg PO SuTuThSa@1600 Zolpidem [Ambien] Med 03/28/20 03:52 Active 5 mg PO BEDTIME PRN carvediloL [Coreg] Med 03/28/20 09:00 Active 18.75 mg PO BID hydrALAZINE [Apresoline] Med 03/28/20 09:00 Active 10 mg PO TID Antiembolic Hose [OM.PC] Routine Oth 03/28/20 07:42 Ordered Saline Lock Insert [OM.PC] Routine Oth 03/28/20 02:31 Ordered Resuscitation Status Routine Resus Stat 03/28/20 03:52 Ordered EKG 12 Lead [EK] Routine Ther 03/28/20 02:31 Ordered Medication Orders Artificial Tears (Refresh Tears 0.5%) 0 ml EYEBOTH ASDIRECTED PRN PRN Reason: Dry Eyes Carvedilol (Coreg) 18.75 mg PO BID GIDEON Furosemide (Lasix) 40 mg IVPUSH BIDDIURETIC GIDEON Hydralazine HCl (Apresoline) 10 mg PO TID GIDEON Senna/Docusate Sodium (Senna Plus) 1 tab PO BID PRN PRN Reason: Constipation Sodium Chloride (Saline Flush) 10 ml FLUSH ASDIRECTED PRN PRN Reason: Keep Vein Open Last Admin: 03/28/20 02:47 Dose: 10 ml Documented by: LIZETT Spironolactone (Aldactone) 25 mg PO BID GIDEON Warfarin Sodium (Coumadin) 5 mg PO MoWeFr@1600 GIDEON Warfarin Sodium (Coumadin) 7.5 mg PO SuTuThSa@1600 GIDEON Zolpidem Tartrate (Ambien) 5 mg PO BEDTIME PRN PRN Reason: Sleep Assessment/Plan Comment:: 1. Admit for CHF exacerbation, atrial fibrillation. 2. CHF: Lasix 40 IV bid, I&Os, daily weight, telemetry. Cardiology appt on 04/12 in [place]. 3. COPD: Oxygen to keep saturations 88-92%, wean oxygen. DuoNebs as needed. 4. Heart Healthy diet. 5. DVT prophylaxis: on Coumadin, INR at goal. TEDs BLE. 6. Falls: PT/OT evaluate and treat. 7. Abrasions: Bacitracin bid to left elbow & right knee. 8. Drug rash: TMC cream as needed for itching. Advised to talk with Cardiology when he has his appointment on 04/12 to see about switching him to a newer anticoagulant to see if Coumadin is the cause of his rash. 9. Lives at home with spouse, no services needed at this time. 10. FULL CODE. - Mortality Measure Prognosis:: Good
[2020-03-28] MEDS: Furosemide 40 MG/4 ML VIAL IVPUSH SCH ×2 (09:06→14:51)
[2020-03-28] MEDS: hydrALAZINE 10 MG Tab PO SCH ×3 (09:06→20:11)
[2020-03-28] MEDS: Spironolactone 25 MG Tab PO SCH ×2 (09:06→20:20)
[2020-03-28] MEDS: Carvedilol 6.25 MG Tab PO SCH ×2 (09:08→20:11)
[2020-03-28] MEDS ORDERED: Albuterol/Ipratropium 3.0-0.5 MG/3 ML Neb Soln NEB PRN (09:12)
[2020-03-28] MEDS ORDERED: Potassium Chloride 20 MEQ Tab.ER PO SCH (10:15)
[2020-03-28] MEDS: Carboxymethylcellulose Sodium 0.5% Ophth Soln 15 ML Bottle EYEBOTH PRN (10:21)
--- NOTE | 2020-03-28 10:27 | CR ---
INDICATION: Right shoulder injury - felt a pop while opening a pickle jar. RIGHT SHOULDER: Three views of the right shoulder revealed moderate degenerative hypertrophic changes at the glenohumeral and AC joints. Glenohumeral joint space appears to be fairly well maintained. There is erosion of the undersurface of the acromion with some sclerosis compatible with rotator cuff injury and/or degeneration with impingement. Somewhat diminished bone density is suggested raising question of osteoporosis or osteomalacia - correlate clinically. An acute fracture or dislocation was not identified. Adjacent ribs and lung were unremarkable. IMPRESSION: 1. No acute fracture or dislocation. 2. Osteoarthritis. 3. Impingement with probable rotator cuff degeneration and/or injury. MTDD
--- NOTE | 2020-03-28 10:36 | CR ---
INDICATION: Dyspnea/CHF. CHEST: Two PA views and a lateral view of the chest were obtained 03/28/20 and compared with 03/26/20. Findings remain compatible with emphysematous change/COPD. Somewhat heavy markings are noted at the lung bases, likely fibrotic in nature but making it difficult to exclude minimal patchy bronchopneumonia especially at the right costophrenic angle. The heart is enlarged in general with pacemaker leads unchanged in position. Evidence of median sternotomy is again noted. The aorta is calcified in the arch, ascending and descending portions. It is moderately tortuous. Bridging hyperostotic changes noted in the mid to lower thoracic spine with an appearance of demineralization suggesting the possibility of osteoporosis or osteomalacia - correlate clinically. A linear density at the right lung base is most likely fibrotic in nature but could be linear atelectatic in nature as it is unchanged in appearance compared with the previous study. Overlying EKG leads are noted. IMPRESSION: 1. No gross interval change compared with the previous examination. 2. No definite acute process but difficult to exclude minimal patchy bronchopneumonia at the lung bases, especially at the right costophrenic angle. 3. COPD. Findings were also compared with 11/25/19 and showed evidence of progression and/or exacerbation of COPD compared with the 11/25/19 examination. 4. ASHD with post-median sternotomy change and stable pacemaker leads. 5. Demineralization is suggested compatible with osteoporosis. 6. Degenerative changes are noted in the mid to lower thoracic spine. MTDD
[2020-03-28] MEDS: Bacitracin Oint 28.35 GM Tube TOP SCH ×2 (11:27→20:15)
[2020-03-28] MEDS: Triamcinolone Acetonide 0.1% Crm 15 GM Tube TOP SCH ×2 (11:28→20:15)
[2020-03-28] MEDS ORDERED: Warfarin 5 MG Tab PO ONE (16:00)
[2020-03-28] MEDS ORDERED: Warfarin 5 MG Tab PO SCH (16:00)
[2020-03-28] MEDS ORDERED: Warfarin Sliding Scale PO SCH (16:00)
[2020-03-29] MEDS: Furosemide 40 MG/4 ML VIAL IVPUSH SCH ×2 (08:52→15:13)
[2020-03-29] MEDS: hydrALAZINE 10 MG Tab PO SCH ×3 (08:53→20:37)
[2020-03-29] MEDS: Spironolactone 25 MG Tab PO SCH ×2 (08:53→20:36)
[2020-03-29] MEDS: Carvedilol 6.25 MG Tab PO SCH ×2 (08:54→20:38)
[2020-03-29] MEDS: Bacitracin Oint 28.35 GM Tube TOP SCH ×2 (08:54→20:40)
[2020-03-29] MEDS: Potassium Chloride 20 MEQ Tab.ER PO SCH ×2 (08:55→20:39)
[2020-03-29] MEDS: Triamcinolone Acetonide 0.1% Crm 15 GM Tube TOP SCH ×2 (08:55→20:42)
[2020-03-29] MEDS: Carboxymethylcellulose Sodium 0.5% Ophth Soln 15 ML Bottle EYEBOTH PRN (08:56)
--- NOTE | 2020-03-29 12:00 | PCM.PN ---
- General Info Date of Service: 03/29/20 Subjective Update: He is feeling better, stomach doesn't feel as hard, shortness of breath improved. Could not do MRI due his pacemaker for right shoulder suspected rotator cuff injury, cannot do arthrogram here as well so will need to see PCP as outpatient for orthopedic referral. Had >4200 ml output in past 24 hours, weight down 4 lbs. Tolerating diet. Did not require PT/OT services at this time, may need OT once he gets imaging done of his shoulder. - Patient Data Vitals - Most Recent: Last Vital Signs Temp 97.6 F 03/29/20 08:00 Pulse 88 03/29/20 08:54 Resp 18 03/29/20 08:00 BP 118/67 03/29/20 08:54 Pulse Ox 98 03/29/20 08:00 Weight - Most Recent: 205 lb 6.4 oz I&O - Last 24 Hours: Intake & Output 03/28/20 03/29/20 03/29/20 22:59 06:59 14:59 Intake Total 200 200 Output Total 1630 650 Balance -1430 -450 Lab Results Last 24 Hours: Laboratory Results - last 24 hr 03/29/20 03/29/20 03/29/20 Range/Units 06:25 06:35 06:35 PT 28.0 H (9.0-11.1) sec INR 2.77 H (1.00-1.24) Sodium 134 L (135-145) mmol/L Potassium 3.3 L (3.5-5.3) mmol/L Chloride 96 L (100-110) mmol/L Carbon Dioxide 28 (21-32) mmol/L BUN 40 H (7-18) mg/dL Creatinine 1.7 H (0.70-1.30) mg/dL Est Cr Clr Drug Dosing 38.76 mL/min Estimated GFR (MDRD) 39 L (>60) BUN/Creatinine Ratio 23.5 H (9-20) Glucose 99 (80-116) mg/dL Calcium 8.8 (8.6-10.2) mg/dL Magnesium 2.1 (1.8-2.5) mg/dL Total Bilirubin 1.3 (0.1-1.3) mg/dL AST 26 H (5-25) IU/L ALT 23 D (12-36) U/L Alkaline Phosphatase 158 H (56-112) IU/L Total Protein 6.9 (6.0-8.0) g/dL Albumin 3.1 L (3.2-4.6) g/dL Globulin 3.8 g/dL Albumin/Globulin Ratio 0.8 Med Orders - Current: Current Medications Albuterol/Ipratropium (Duoneb 3.0-0.5 Mg/3 Ml) 3 ml NEB Q4H PRN PRN Reason: Wheezing Artificial Tears (Refresh Tears 0.5%) 0 ml EYEBOTH ASDIRECTED PRN PRN Reason: Dry Eyes Last Admin: 03/29/20 08:56 Dose: 1 drop Documented by: Bacitracin (Bacitracin Oint) 0 gm TOP BID [facility] Last Admin: 03/29/20 08:54 Dose: 1 applic Documented by: Carvedilol (Coreg) 18.75 mg PO BID [facility] Last Admin: 03/29/20 08:54 Dose: 18.75 mg Documented by: Furosemide (Lasix) 40 mg IVPUSH BIDDIURETIC [facility] Last Admin: 03/29/20 08:52 Dose: 40 mg Documented by: Hydralazine HCl (Apresoline) 10 mg PO TID [facility] Last Admin: 03/29/20 08:53 Dose: 10 mg Documented by: Magnesium Oxide (Magnesium Oxide) 400 mg PO BEDTIME [facility] Potassium Chloride (Klor-Con M20) 20 meq PO BID [facility] Last Admin: 03/29/20 08:55 Dose: 20 meq Documented by: Senna/Docusate Sodium (Senna Plus) 1 tab PO BID PRN PRN Reason: Constipation Sodium Chloride (Saline Flush) 10 ml FLUSH ASDIRECTED PRN PRN Reason: Keep Vein Open Last Admin: 03/28/20 14:55 Dose: 10 ml Documented by: Spironolactone (Aldactone) 25 mg PO BID [facility] Last Admin: 03/29/20 08:53 Dose: 25 mg Documented by: Triamcinolone Acetonide (Triamcinolone Acetonide 0.1% Crm) 0 gm TOP BID [facility] Stop: 04/11/20 09:16 Last Admin: 03/29/20 08:55 Dose: 1 applic Documented by: Warfarin Sodium (Coumadin Sliding Scale) 1 each PO ASDIRECTED [facility] Warfarin Sodium (Coumadin) 2.5 mg PO MoFr@1600 [facility] Warfarin Sodium (Coumadin) 5 mg PO SuTuWeThSa@1600 [facility] Discontinued Medications Furosemide (Lasix) 40 mg IVPUSH ONETIME ONE Stop: 03/28/20 02:33 Last Admin: 03/28/20 02:46 Dose: 40 mg Documented by: Metolazone (Zaroxolyn) 2.5 mg PO ONETIME ONE Stop: 03/28/20 02:33 Last Admin: 03/28/20 02:47 Dose: 2.5 mg Documented by: Morphine Sulfate (Morphine) 2 mg IVPUSH ONETIME ONE Stop: 03/28/20 02:34 Last Admin: 03/28/20 02:46 Dose: 2 mg Documented by: Potassium Chloride (Klor-Con M20) 20 meq PO DAILY [facility] Last Admin: 03/28/20 10:18 Dose: 20 meq Documented by: Warfarin Sodium (Coumadin) 5 mg PO MoWeFr@1600 [facility] Warfarin Sodium (Coumadin) 7.5 mg PO SuTuThSa@1600 [facility] Warfarin Sodium (Coumadin) 5 mg PO 1600 ONE Stop: 03/28/20 16:01 Last Admin: 03/28/20 16:43 Dose: 5 mg Documented by: Zolpidem Tartrate (Ambien) 5 mg PO BEDTIME PRN PRN Reason: Sleep - Exam Quality Assessment: No: Supplemental Oxygen General: Alert, Oriented, Cooperative, No Acute Distress Lungs: Clear to Auscultation (BUE), Normal Respiratory Effort, Decreased Breath Sounds (Bibasilar), Crackles (fine, bibasilar). No: Rales, Rhonchi, Wheezing Cardiovascular: Regular Rate, Regular Rhythm (paced) GI/Abdominal Exam: Normal Bowel Sounds, Soft, Non-Tender, No Distention. No: Guarding, Rigid, Rebound Extremities: Pedal Edema (2+ BLE, edema at knees has resolved.) Peripheral Pulses: 2+: Radial (L), Radial (R) Sepsis Event Note - Evaluation Sepsis Screening Result: No Definite Risk - Focused Exam Vital Signs: Vital Signs Temp Pulse Pulse Resp BP BP Pulse Ox 03/29/20 08:54 88 118/67 03/29/20 08:53 118/67 03/29/20 08:00 97.6 F 88 18 118/65 98 03/29/20 04:00 97.4 F 82 20 110/68 98 03/29/20 00:00 97.7 F 81 20 102/55 L 95 - Problem List & Annotations (1) Atrial fibrillation SNOMED Code(s): 06664226 Code(s): I48.91 - UNSPECIFIED ATRIAL FIBRILLATION Status: Acute Current Visit: Yes (2) Atrial flutter SNOMED Code(s): 8484998 Code(s): I48.92 - UNSPECIFIED ATRIAL FLUTTER Status: Acute Current Visit: Yes (3) CHF (congestive heart failure) SNOMED Code(s): 16405347 Code(s): I50.9 - HEART FAILURE, UNSPECIFIED Status: Acute Current Visit: Yes (4) COPD (chronic obstructive pulmonary disease) SNOMED Code(s): 88077594 Code(s): J44.9 - CHRONIC OBSTRUCTIVE PULMONARY DISEASE, UNSPECIFIED Status: Acute Current Visit: Yes (5) History of left-sided carotid endarterectomy SNOMED Code(s): 794934955 Code(s): Z98.890 - OTHER SPECIFIED POSTPROCEDURAL STATES Status: Chronic Current Visit: Yes - Problem List Review Problem List Initiated/Reviewed/Updated: Yes - My Orders Last 24 Hours: My Active Orders 03/28/20 16:00 Warfarin Sliding Scale [Coumadin Sliding Scale] 1 each PO ASDIRECTED 03/29/20 07:55 Discontinue Telemetry Monitoring [Cardiac Monitoring Discontinue] [RC] Click to Edit 03/29/20 09:00 Potassium Chloride [Klor-Con M20] 20 meq PO BID 03/29/20 16:00 Warfarin [Coumadin] 5 mg PO SuTuWeThSa@159903/29/20 21:00 Magnesium Oxide 400 mg PO BEDTIME 03/30/20 06:00 BASIC METABOLIC PANEL,BMP [CHEM] Routine INR,PT,PROTHROMBIN TIME [COAG] DAILY 03/30/20 16:00 Warfarin [Coumadin] 2.5 mg PO MoFr@1600 03/31/20 06:00 INR,PT,PROTHROMBIN TIME [COAG] DAILY - Plan Plan:: 1. CHF: Lasix 40 IV bid, I&Os, daily weight, discontinued telemetry as majority paced rhythm. Cardiology appt on 04/12 in [place]. 2. COPD: Oxygen to keep saturations 88-92%, wean oxygen. DuoNebs as needed. 3. Heart Healthy diet. 4. DVT prophylaxis: on Coumadin, INR at goal. TEDs BLE. 5. Right shoulder: questionable injury to right shoulder prior to admission, will need outpatient follow up as we cannot do MRI or CT arthrogram here. 6. Abrasions: Bacitracin bid to left elbow & right knee. 7. Drug rash: TMC cream as needed for itching. Advised to talk with Cardiology when he has his appointment on 04/12 to see about switching him to a newer anticoagulant to see if Coumadin is the cause of his rash.
[2020-03-29] MEDS: Sodium Chloride 0.9% 10 ML Syringe FLUSH PRN (15:19)
[2020-03-29] MEDS ORDERED: Warfarin 5 MG Tab PO SCH ×2 (16:00)
[2020-03-29] MEDS: Magnesium Oxide 400 MG Tab PO SCH (20:39)
[2020-03-30] MEDS: Furosemide 40 MG/4 ML VIAL IVPUSH SCH (08:18)
[2020-03-30] MEDS: Bacitracin Oint 28.35 GM Tube TOP SCH ×2 (08:18→20:45)
[2020-03-30] MEDS: Carvedilol 6.25 MG Tab PO SCH ×2 (08:18→20:47)
[2020-03-30] MEDS: hydrALAZINE 10 MG Tab PO SCH ×3 (08:18→20:42)
[2020-03-30] MEDS: Spironolactone 25 MG Tab PO SCH ×2 (08:18→20:42)
[2020-03-30] MEDS: Potassium Chloride 20 MEQ Tab.ER PO SCH ×2 (08:19→20:48)
[2020-03-30] MEDS: Triamcinolone Acetonide 0.1% Crm 15 GM Tube TOP SCH ×2 (08:19→20:43)
[2020-03-30] MEDS: Sodium Chloride 0.9% 10 ML Syringe FLUSH PRN (08:20)
[2020-03-30] MEDS ORDERED: Metolazone 2.5 MG Tab PO ONE (08:38)
--- NOTE | 2020-03-30 08:42 | PCM.PN ---
- General Info Date of Service: 03/30/20 Subjective Update: Tal admitted for CHF exacerbation. He reports improvement of his current symptoms. He still does have edema the legs. No chest pain. No cough. Functional Status: Reports: Pain Controlled - Review of Systems General: Reports: No Symptoms HEENT: Reports: No Symptoms Pulmonary: Reports: No Symptoms Cardiovascular: Reports: No Symptoms - Patient Data Vitals - Most Recent: Last Vital Signs Temp 97.5 F 03/29/20 23:30 Pulse 89 03/30/20 08:18 Resp 18 03/30/20 05:45 BP 126/70 03/30/20 08:18 Pulse Ox 98 03/30/20 05:45 Weight - Most Recent: 92.85 kg I&O - Last 24 Hours: Intake & Output 03/29/20 03/30/20 03/30/20 22:59 06:59 14:59 Output Total 1025 600 Balance -1025 -600 Lab Results Last 24 Hours: Laboratory Results - last 24 hr 03/29/20 03/30/20 03/30/20 Range/Units 06:25 06:15 06:15 PT 31.0 H (9.0-11.1) sec INR 3.09 H (1.00-1.24) Sodium 134 L (135-145) mmol/L Potassium 3.6 (3.5-5.3) mmol/L Chloride 97 L (100-110) mmol/L Carbon Dioxide 30 (21-32) mmol/L BUN 41 H (7-18) mg/dL Creatinine 1.7 H (0.70-1.30) mg/dL Est Cr Clr Drug Dosing 38.76 mL/min Estimated GFR (MDRD) 39 L (>60) BUN/Creatinine Ratio 24.1 H (9-20) Glucose 95 (80-116) mg/dL Calcium 8.9 (8.6-10.2) mg/dL Magnesium 2.1 (1.8-2.5) mg/dL Med Orders - Current: Current Medications Albuterol/Ipratropium (Duoneb 3.0-0.5 Mg/3 Ml) 3 ml NEB Q4H PRN PRN Reason: Wheezing Artificial Tears (Refresh Tears 0.5%) 0 ml EYEBOTH ASDIRECTED PRN PRN Reason: Dry Eyes Last Admin: 03/29/20 08:56 Dose: 1 drop Documented by: Bacitracin (Bacitracin Oint) 0 gm TOP BID [facility] Last Admin: 03/30/20 08:18 Dose: 1 applic Documented by: Carvedilol (Coreg) 18.75 mg PO BID [facility] Last Admin: 03/30/20 08:18 Dose: 18.75 mg Documented by: Hydralazine HCl (Apresoline) 10 mg PO TID [facility] Last Admin: 03/30/20 08:18 Dose: 10 mg Documented by: Magnesium Oxide (Magnesium Oxide) 400 mg PO BEDTIME [facility] Last Admin: 03/29/20 20:39 Dose: 400 mg Documented by: Potassium Chloride (Klor-Con M20) 20 meq PO BID [facility] Last Admin: 03/30/20 08:19 Dose: 20 meq Documented by: Senna/Docusate Sodium (Senna Plus) 1 tab PO BID PRN PRN Reason: Constipation Sodium Chloride (Saline Flush) 10 ml FLUSH ASDIRECTED PRN PRN Reason: Keep Vein Open Last Admin: 03/30/20 08:20 Dose: 10 ml Documented by: Spironolactone (Aldactone) 25 mg PO BID [facility] Last Admin: 03/30/20 08:18 Dose: 25 mg Documented by: Torsemide (Demadex) 40 mg PO BIDDIURETIC [facility] Triamcinolone Acetonide (Triamcinolone Acetonide 0.1% Crm) 0 gm TOP BID [facility] Stop: 04/11/20 09:16 Last Admin: 03/30/20 08:19 Dose: 1 applic Documented by: Warfarin Sodium (Coumadin Sliding Scale) 1 each PO ASDIRECTED [facility] Warfarin Sodium (Coumadin) 2.5 mg PO MoFr@1600 [facility] Warfarin Sodium (Coumadin) 5 mg PO SuTuWeThSa@1600 [facility] Last Admin: 03/29/20 16:40 Dose: 5 mg Documented by: Discontinued Medications Furosemide (Lasix) 40 mg IVPUSH ONETIME ONE Stop: 03/28/20 02:33 Last Admin: 03/28/20 02:46 Dose: 40 mg Documented by: Furosemide (Lasix) 40 mg IVPUSH BIDDIURETIC [facility] Last Admin: 03/30/20 08:18 Dose: 40 mg Documented by: Metolazone (Zaroxolyn) 2.5 mg PO ONETIME ONE Stop: 03/28/20 02:33 Last Admin: 03/28/20 02:47 Dose: 2.5 mg Documented by: Metolazone (Zaroxolyn) 2.5 mg PO ONETIME ONE Stop: 03/30/20 08:39 Morphine Sulfate (Morphine) 2 mg IVPUSH ONETIME ONE Stop: 03/28/20 02:34 Last Admin: 03/28/20 02:46 Dose: 2 mg Documented by: Potassium Chloride (Klor-Con M20) 20 meq PO DAILY [facility] Last Admin: 03/28/20 10:18 Dose: 20 meq Documented by: Warfarin Sodium (Coumadin) 5 mg PO MoWeFr@1600 [facility] Warfarin Sodium (Coumadin) 7.5 mg PO SuTuThSa@1600 [facility] Warfarin Sodium (Coumadin) 5 mg PO 1600 ONE Stop: 03/28/20 16:01 Last Admin: 03/28/20 16:43 Dose: 5 mg Documented by: Zolpidem Tartrate (Ambien) 5 mg PO BEDTIME PRN PRN Reason: Sleep - Exam General: Alert, Oriented HEENT: Pupils Equal Neck: Supple Lungs: Crackles Cardiovascular: Regular Rate, Irregular Rhythm Extremities: Normal Inspection, Pedal Edema Sepsis Event Note - Evaluation Sepsis Screening Result: No Definite Risk - Focused Exam Vital Signs: Vital Signs Temp Pulse Pulse Resp BP BP Pulse Ox 03/30/20 08:18 89 126/70 03/30/20 05:45 86 18 120/73 98 03/29/20 23:30 97.5 F 84 18 116/74 98 - Problem List & Annotations (1) CHF (congestive heart failure) SNOMED Code(s): 73664988 Code(s): I50.9 - HEART FAILURE, UNSPECIFIED Status: Acute Current Visit: Yes Qualifiers: Heart failure type: systolic (2) Atrial fibrillation SNOMED Code(s): 14691021 Code(s): I48.91 - UNSPECIFIED ATRIAL FIBRILLATION Status: Acute Current Visit: Yes (3) CKD (chronic kidney disease) SNOMED Code(s): 526596442 Code(s): N18.9 - CHRONIC KIDNEY DISEASE, UNSPECIFIED Status: Acute Current Visit: Yes (4) COPD (chronic obstructive pulmonary disease) SNOMED Code(s): 08077407 Code(s): J44.9 - CHRONIC OBSTRUCTIVE PULMONARY DISEASE, UNSPECIFIED Status: Acute Current Visit: Yes - Problem List Review Problem List Initiated/Reviewed/Updated: Yes - My Orders Last 24 Hours: My Active Orders 03/30/20 14:00 Torsemide [Demadex] 40 mg PO BIDDIURETIC 03/31/20 05:11 BASIC METABOLIC PANEL,BMP [CHEM] AM PRO B-TYPE NATRIUR PEPT,BNPPRO [CHEM] DAILY - Plan Plan:: Switch his IV Lasix to oral Torsemide beginning this afternoon. One-time dose of Zaroxolyn given. Repeat Basic Panel tomorrow. Keep 1 more day and possibly discharge tomorrow morning
[2020-03-30] MEDS: Carboxymethylcellulose Sodium 0.5% Ophth Soln 15 ML Bottle EYEBOTH PRN (08:57)
[2020-03-30] MEDS: Torsemide 20 MG Tab PO SCH (13:51)
[2020-03-30] MEDS ORDERED: Warfarin 2.5 MG Tab PO SCH (16:00)
[2020-03-30] MEDS: Magnesium Oxide 400 MG Tab PO SCH (20:48)
[2020-03-31] MEDS: Carboxymethylcellulose Sodium 0.5% Ophth Soln 15 ML Bottle EYEBOTH PRN (08:48)
[2020-03-31] MEDS: Torsemide 20 MG Tab PO SCH (08:48)
[2020-03-31] MEDS: Potassium Chloride 20 MEQ Tab.ER PO SCH (08:48)
[2020-03-31] MEDS: Spironolactone 25 MG Tab PO SCH (08:49)
[2020-03-31] MEDS: hydrALAZINE 10 MG Tab PO SCH (08:49)
[2020-03-31] MEDS: Triamcinolone Acetonide 0.1% Crm 15 GM Tube TOP SCH (08:49)
[2020-03-31] MEDS: Bacitracin Oint 28.35 GM Tube TOP SCH (08:49)
[2020-03-31 08:50] VITALS: BP 105/67; PULSE 93
[2020-03-31] MEDS: Carvedilol 6.25 MG Tab PO SCH (08:50)
--- NOTE | 2020-03-31 11:14 | DISCH ---
DISCHARGE DATE: 03/31/2020 REASON FOR ADMISSION: CHF exacerbation. DISCHARGE DIAGNOSES: 1. Congestive heart failure exacerbation. 2. Atrial fibrillation. 3. Chronic obstructive pulmonary disease. 4. Chronic kidney disease. 5. Rash, drug eruption. BRIEF HISTORY AND HOSPITAL COURSE: This is a 79-year-old male who has shortness of breath, chronic, but worse in the last few days. Was in the ER at [facility], started on Aldactone in addition to his torsemide, but he was more short of breath the next day and came to the ER, was admitted for diuresis. He was given Lasix 40 mg IV b.i.d. His symptoms improved. He is off oxygen and ready to go home. His creatinine came down from 2.1 to 1.7. I discharged him today. He has a cardiology appointment on April 12. I added Zaroxolyn 1.25 mg daily. It is recommended that he should see his PCP in a week for a basic metabolic panel. The rest of his prescriptions were continued as previously ordered including hydralazine 10 mg t.i.d., potassium chloride 20 mEq daily, spironolactone 25 mg b.i.d., torsemide 40 mg b.i.d., and Coumadin. The rash is thought to be due to Coumadin and this can be discussed with the caseworker intake to see if he is a candidate for new anticoagulants. I spent more than 35 minutes in the discharge of the patient. /[id number] RAFFAELE/PREM
[2020-03-31] MEDS ORDERED: Warfarin 2.5 MG Tab PO ONE (16:00)
== END 2020-03-31 10:30 | disposition home or self-care (01) | DRG 291 ==
LOC: FB.ED 02:06 → FB.MS 03:59 → UNDOADMIN 03:59 → FB.MS 04:01
PROVIDERS: ADMIT Emergency Medicine; ATTEND Family Medicine
DX: I11.0 Hypertensive heart disease with heart failure (principal); I50.9 Heart failure, unspecified; I13.0 Hypertensive heart and chronic kidney disease with heart failure and stage 1 through stage 4 chronic kidney disease, or unspecified chronic kidney disease; I50.23 Acute on chronic systolic (congestive) heart failure; I48.92 Unspecified atrial flutter; H91.90 Unspecified hearing loss, unspecified ear; H40.9 Unspecified glaucoma; E78.00 Pure hypercholesterolemia, unspecified; L27.0 Generalized skin eruption due to drugs and medicaments taken internally; I48.91 Unspecified atrial fibrillation; M19.90 Unspecified osteoarthritis, unspecified site; J44.9 Chronic obstructive pulmonary disease, unspecified; F17.200 Nicotine dependence, unspecified, uncomplicated; T45.515A Adverse effect of anticoagulants, initial encounter; N18.9 Chronic kidney disease, unspecified; Z88.8 Allergy status to other drugs, medicaments and biological substances; Z79.01 Long term (current) use of anticoagulants; Z79.899 Other long term (current) drug therapy
CPT/HCPCS: 36415; 71046; 73030; 80053; 83880; 84484; 85025; 85610; 93005; 96374; 96375; 99285; A9270 ×2; J1940; J2270; 80048; 83735; 94760; 97165-GO